=== PATIENT | female | born 1975 | race Caucasian/White ===

== ENCOUNTER → 2016-07-23 | Outpatient (CLI) | payer OTHER ==
[~2016-07-23] MED LIST: GADOBUTROL 10 ML VIAL IVP ONE
== END ==
LOC: FIMAGING 14:03
PROVIDERS: ATTEND Physician Assistant
DX: S32.10XA Unspecified fracture of sacrum, initial encounter for closed fracture (principal); S32.2XXA Fracture of coccyx, initial encounter for closed fracture; M51.37 Other intervertebral disc degeneration, lumbosacral region
CPT/HCPCS: A9585

== ENCOUNTER 2017-08-07 18:58 | Emergency (ER) | payer OTHER ==
--- NOTE | 2017-08-07 19:18 | CPEKG ---
Heart Rate: 52 RR Interval: 1154 P-R Interval: 136 QRSD Interval: 98 QT Interval: 444 QTC Interval: 413 P [place]: 72 QRS [place]: 83 T Wave Strat[place]: 50 EKG Severity - NORMAL ECG - EKG Impression: SINUS RHYTHM Electronically Signed By: Mohan Cleveland 09-Aug-2017 07:52:21
[2017-08-07 19:21] LABS: PLATELET COUNT 203 10^3/uL (150-400)
--- NOTE | 2017-08-07 19:36 | EDPHY ---
H & P Stated Complaint: fatigue, chest tightness, sob with exertion x 1 day - Personal History LMP (Females 10-55): 8-14 Days Ago - Medical/Surgical History Hx Asthma: No Hx Chronic Respiratory Disease: No Hx Diabetes: No Hx Cardiac Disease: No Hx Renal Disease: No Hx Cirrhosis: No Hx Alcoholism: No Hx HIV/AIDS: No Hx Splenectomy or Spleen Trauma: No Other PMH: denies - Social History Smoking Status: Never smoked Time Seen by Provider: 08/07/17 19:05 HPI/ROS: CHIEF COMPLAINT: Chest pain, shortness of breath HISTORY OF PRESENT ILLNESS: 42-year-old female presents with chest pain and shortness of breath. SOB is described as a need take a deep breath. SOB resolves when she is distracted or when she is able to take a deep breath. No dyspnea. Chest discomfort started around 3:00 p.m. today and has been persistent since then. The chest discomfort is 2/10 and a vague sensation. No prior history of cardiopulmonary disease. Cardiac risk factors negative. Nonsmoker; no family history; no hypertension, diabetes or hypercholesterolemia. REVIEW OF SYSTEMS: complete 10 point ROS negative except at noted in the HPI (Giovanna Talavera) - Physical Exam Exam: General Appearance: Alert, pleasant Eyes: Pupils equal and round, no conjunctival pallor or injection ENT, Mouth: Mucous membranes moist Neck: Normal inspection Respiratory: No chest wall tenderness, lungs are clear to auscultation Cardiovascular: Regular rate and rhythm Gastrointestinal: Abdomen is soft and nontender Neurological: A&O, nonfocal, normal gait Skin: Warm and dry Extremities: Nontender, no pedal edema Psychiatric: Mood and affect normal (Giovanna Talavera S) Constitutional: Initial Vital Signs Temperature (C) 37.1 C 08/07/17 19:00 Heart Rate 65 08/07/17 19:00 Respiratory Rate 16 08/07/17 19:00 Blood Pressure 127/72 H 08/07/17 19:00 O2 Sat (%) 97 08/07/17 19:00 O2 Delivery Mode Room Air Allergies/Adverse Reactions: azithromycin Allergy (Verified 08/07/17 19:00) Home Medications: Medication Instructions Recorded Ortho-Cyclen 28 Tablet 08/07/17 Medical Decision Making - Diagnostics EKG Interpretation: EKG interpreted by me reveals sinus rhythm, rate 52, normal axis and intervals, no ST or T segment changes. Interpretation: Normal EKG (Giovanna Talavera) ED Course/Re-evaluation: This patient presents with atypical chest pain. After careful consideration and evaluation, I find no evidence of acute coronary syndrome. The patient has no risk factors for coronary disease, normal EKG and normal studies. Heart score is 0 so far (troponin pending). I do not feel that additional ED testing is indicated. In addition, I feel that I can safely exclude pulmonary embolism , with normal vital signs, normal oxygen saturation, if d-dimer is normal. PERC score negative; age less than 50, normal physical exam, no prior thromboembolism, no recent surgery, no estrogen use. In addition there is no evidence of pneumothorax, pneumonia, aortic dissection. (Giovanna Talavera) Differential Diagnosis: Differential diagnosis includes though it is not limited to pneumonia, pneumothorax, pulmonary embolism, aortic dissection, pericarditis, acute coronary syndrome. (Giovanna Talavera) Other Provider: I assumed care of the patient from Dr. Talavera at shift change pending results of troponin and D-dimer testing. I reviewed the patient's EKG. Her D-dimer and troponin test are normal. The patient is low risk by Wells criteria. Her heart score 0. The patient's troponin is currently a 5 hr level. At this point time the patient has no risk factors for coronary artery disease. She presents to the ED with atypical chest pain. She has no evidence of ischemia based upon her EKG today. I did inform the patient that we cannot fully exclude coronary artery disease however she is felt to be extremely low risk. I do feel would be reasonable to have her contact Cardiology for consideration of additional risk stratification. I am comfortable discharging the patient home without a repeat troponin. (Flakito Bar) - Data Points Laboratory Results: Laboratory Results 08/07/17 19:10 08/07/17 19:10 Departure - Departure Disposition: Home, Routine, Self-Care Clinical Impression: Chest pain Qualifiers: Chest pain type: other chest pain Qualified Code(s): R07.89 - Other chest pain ; R07.8 - Other chest pain Condition: Good Instructions: Chest Pain (ED) Additional Instructions: 1. Based upon the testing done in the Emergency Department today we see no evidence of a heart attack. 2. We are unable to fully exclude coronary artery disease based upon the testing available in the Emergency Department. 3. For this reason, we would like you to be seen by cardiology for consideration of additional testing within the next 3 days. 4. Please contact the utility lineman you have been referred to schedule this appointment as soon as possible. Their offices are typically open from 8:30am- 5pm M-F. 5. Please return to the Emergency Department immediately for any recurrent chest pain, difficulty breathing or other concerns. Referrals: Belle Bustos MD [Primary Care Provider] - As per Instructions Georges Georges MD [Medical Doctor] - As per Instructions
[2017-08-07 20:43] VITALS: BP 114/68
== END 2017-08-07 21:05 | disposition home or self-care (01) ==
DX: R07.89 Other chest pain (principal)